=== PATIENT | female | born 1945 | race Caucasian/White ===

== ENCOUNTER 2017-06-18 13:30 | Inpatient (IN) | payer MEDICARE, BC ==
[2017-06-18 14:34] LABS: Hematocrit 37 % (35-47); Hemoglobin 12.2 g/dl (12.0-16.0); Mean Corpuscular HGB Conc 33 g/dl (31-36); Mean Corpuscular Hemoglobin 31 pg (27-31); Mean Corpuscular Volume 94 fL (80-97); Mean Platelet Volume 7 um3 (7.4-10.4); Red Blood Count 3.91 10^6/ul (4.0-5.4); Red Cell Distribution Width 13 % (10.5-15); White Blood Count 6.2 10^3/ul (3.5-10.8)
[2017-06-18 14:59] LABS: ALT 11 U/L (7-52); AST 16 U/L (13-39); Albumin 4.2 g/dL (3.2-5.2); Alkaline Phosphatase 53 U/L (34-104); Anion Gap 5 mmol/L (2-11); BUN/Creatinine Ratio 10.5 (8-20); Blood Urea Nitrogen 6 mg/dL (6-24); CO2 Carbon Dioxide 31 mmol/L (22-32); Calcium 9.4 mg/dL (8.6-10.3); Chloride 98 mmol/L (101-111); EGFR African American 134.9 (>60); EGFR Non-African American 104.9 (>60); Globulin 2.7 g/dL (2-4); Glucose 102 mg/dL (70-100); Potassium 4.2 mmol/L (3.5-5.0); Sodium 134 mmol/L (133-145); Total Protein 6.9 g/dL (6.4-8.9)
[2017-06-18 15:06] LABS: Acetaminophen < 15 mcg/mL; Alcohol < 10 mg/dL (<10); Salicylate < 2.50 mg/dL (<30)
[2017-06-18 15:16] LABS: TSH (Thyroid Stimulating Horm) < 0.03 mcIU/mL (0.34-5.60)
[2017-06-18 15:42] LABS: Urine Bilirubin Negative (Negative); Urine Glucose Negative (Negative); Urine Nitrite Negative (Negative)
[2017-06-18 16:26] LABS: Benzodiazepine Urine Screen None Detected (None Detect)
[2017-06-18] MEDS ORDERED: Nicotine Inhaler* 10 MG AMP INH PRN (17:03)
[2017-06-18] MEDS ORDERED: Al Hydrox/Mg Hydrox/Simet LIQ* 30 ML UDC PO PRN (17:03)
[2017-06-18] MEDS ORDERED: Acetaminophen TAB* 325 MG PO PRN (17:03)
[2017-06-18] MEDS ORDERED: Nicotine GUM* 2 MG PO PRN (17:03)
[2017-06-18] MEDS ORDERED: LORazepam TAB(*) 1 MG PO ONE (17:05)
[2017-06-18] MEDS ORDERED: Ondansetron ODT TAB* 4 MG PO ONE (19:23)
--- NOTE | 2017-06-18 19:24 | ED ---
Sinan Ogden Thomas, scribed for Estela Valentine MD on 06/18/17 at 1355 . Psychiatric Complaint - HPI Summary HPI Summary: The pt is a 72 y/o F with a Hx of depression presenting to the ED c/o worsening of her depression over the last 6 months and especially over the last few days. She has been crying and lying in bed more frequently in the last few days and she reports that her medication is no longer working. Her son, who is in the room, reports that her mental state has been dire. Pt additionally c/o intermittent chronic SOB. Pt denies CP and SI. PMHx: COPD, depression, vertebral fractures. SHx: former smoker, no alcohol use, no illicit drug use. She lives with her . She is on 2L of oxygen. - History Of Current Complaint Chief Complaint: [facility]ental[facility] Time Seen by Provider: 06/18/17 13:51 Hx Obtained From: Patient, Family/[employer] Clerk - son in room Onset/Duration: Lasting Weeks - 6 months, Still Present, Worse Since - last few days Timing: Constant Character: Depressed Aggravating Factor(s): Nothing Alleviating Factor(s): Nothing Has Suicidal: Denies: Thoughts Has Homicidal: Denies: Thoughts - Allergies/Home Medications Allergies/Adverse Reactions: Allergies Allergy/AdvReac Type Severity Reaction Status Date / Time Aspirin [ASA] Allergy Rash Verified 06/18/17 18:24 Ciprofloxacin [From Cipro] Allergy Rash Verified 06/18/17 18:24 Diphenhydramine Allergy Rash Verified 06/18/17 18:24 [From Benadryl] Nickel Allergy Rash Verified 06/18/17 18:24 Home Medications: Home Medications Albuterol inh POWDER (NF) [Proair Respiclick] 1 puff INH Q6HR PRN 06/18/17 [ History Confirmed 06/18/17] Atorvastatin* [Lipitor*] 20 mg PO DAILY 06/18/17 [History Confirmed 06/18/17] Calcium Carbonate-Cholecalcife [Calcium 600 + D 600-200 mg-Unit] 1 tab PO BID [History Confirmed 06/18/17] Ciprofloxacin TAB* [Cipro 500 MG TAB*] 500 mg PO BID 06/18/17 [History Confirmed 06/18/17] Fluticasone Furoate-Vilanterol [Breo Ellipta 200-25 Mcg/INH] 1 puff INH BID [History Confirmed 06/18/17] Gabapentin CAP(*) [Neurontin 100 mg CAP(*)] 200 - 300 mg PO BID PRN 06/18/17 [ History Confirmed 06/18/17] Gabapentin CAP(*) [Neurontin 300 CAP(*)] 300 mg PO TID 06/18/17 [History Confirmed 06/18/17] Lactobacillus [Probiotic] 1 cap PO DAILY 06/18/17 [History Confirmed 06/18/17] Metoprolol Tartrate TAB* [Lopressor TAB*] 25 mg PO BID 06/18/17 [History Confirmed 06/18/17] Ondansetron TAB* [Zofran 4 MG Tab*] 4 mg PO Q8HR PRN 06/18/17 [History Confirmed 06/18/17] Pantoprazole TAB (NF) [Protonix TAB (NF)] 40 mg PO BID 06/18/17 [History Confirmed 06/18/17] Potassium Chlor TAB* [Klor Con ER TAB*] 20 meq PO DAILY WITH MEAL 06/18/17 [ History Confirmed 06/18/17] clonazePAM TAB(*) [KlonoPIN TAB(*)] 0.25 mg PO TID PRN 06/18/17 [History Confirmed 06/18/17] metroNIDAZOLE TAB* [Flagyl 250 mg TAB*] 500 mg PO BID 06/18/17 [History Confirmed 06/18/17] PMH/Surg Hx/FS Hx/Imm Hx Previously Healthy: No Respiratory History: Reports: Hx Chronic Obstructive Pulmonary Disease (COPD) Musculoskeletal History: Reports: Other Musculoskeletal History - Hx vertebral fractures Psychiatric History: Reports: Hx Depression - Surgical History Surgery Procedure, Year, and Place: Hysterectomy Infectious Disease History: Denies: Traveled Outside the [place] in Last 30 Days - Family History Known Family History: Positive: Diabetes - Social History Lives: With Family - Alcohol Use: None Substance Use Type: Reports: None Hx Tobacco Use: Yes Smoking Status (MU): Former Smoker Review of Systems Negative: Chest Pain Positive: Shortness Of Breath - intermittent chronic Positive: Depressed - onset 6 months ago but worse in last few days, Other - NEG : SI All Other Systems Reviewed And Are Negative: Yes Physical Exam Triage Information Reviewed: Yes Vital Signs On Initial Exam: Initial Vitals Temp Pulse Resp BP Pulse Ox 97.4 F 62 18 149/80 99 06/18/17 13:37 06/18/17 13:37 06/18/17 13:37 06/18/17 13:37 06/18/17 13:37 Vital Signs Reviewed: Yes Appearance: Positive: Well-Appearing, No Pain Distress Skin: Positive: Warm, Skin Color Reflects Adequate Perfusion, Dry Eyes: Positive: EOMI, REGLA ENT: Positive: Pharynx normal, TMs normal Neck: Positive: Supple, Nontender Respiratory/Lung Sounds: Positive: Clear to Auscultation, Breath Sounds Present , Other - She is on NC Oxygen. Negative: Rales, Rhonchi, Wheezes Cardiovascular: Positive: RRR. Negative: Murmur, Rub, Other - NEG: gallop Abdomen Description: Positive: Nontender, Soft. Negative: Distended, Guarding, Other: - NEG: rebound Bowel Sounds: Positive: Present Musculoskeletal: Positive: Strength/ROM Intact. Negative: Edema Left, Edema Right Neurological: Positive: Sensory/Motor Intact, Alert, Oriented to Person Place, Time, CN Intact II-III Psychiatric: Positive: Affect/Mood Appropriate Diagnostics - Vital Signs Vital Signs Temp Pulse Resp BP Pulse Ox 06/18/17 13:37 97.4 F 62 18 149/80 99 - Laboratory Lab Results: Lab Results 06/18/17 06/18/17 06/18/17 Range/Units 14:20 14:20 15:30 WBC 6.2 (3.5-10.8) 10^3/ul RBC 3.91 L (4.0-5.4) 10^6/ul Hgb 12.2 (12.0-16.0) g/dl Hct 37 (35-47) % MCV 94 (80-97) fL MCH 31 (27-31) pg MCHC 33 (31-36) g/dl RDW 13 (10.5-15) % Plt Count 347 (150-450) 10^3/ul MPV 7 L (7.4-10.4) um3 Neut % (Auto) 69.2 (38-83) % Lymph % (Auto) 20.0 L (25-47) % [place] % (Auto) 7.8 (1-9) % Eos % (Auto) 2.2 (0-6) % Baso % (Auto) 0.8 (0-2) % Absolute Neuts (auto) 4.3 (1.5-7.7) 10^3/ul Absolute Lymphs (auto) 1.2 (1.0-4.8) 10^3/ul Absolute Monos (auto) 0.5 (0-0.8) 10^3/ul Absolute Eos (auto) 0.1 (0-0.6) 10^3/ul Absolute Basos (auto) 0.1 (0-0.2) 10^3/ul Absolute Nucleated RBC 0 10^3/ul Nucleated RBC % 0 Sodium 134 (133-145) mmol/L Potassium 4.2 (3.5-5.0) mmol/L Chloride 98 L (101-111) mmol/L Carbon Dioxide 31 (22-32) mmol/L Anion Gap 5 (2-11) mmol/L BUN 6 (6-24) mg/dL Creatinine 0.57 (0.51-0.95) mg/dL Est GFR ( Amer) 134.9 (>60) Est GFR (Non-Af Amer) 104.9 (>60) BUN/Creatinine Ratio 10.5 (8-20) Glucose 102 H (70-100) mg/dL Calcium 9.4 (8.6-10.3) mg/dL Total Bilirubin 0.60 (0.2-1.0) mg/dL AST 16 (13-39) U/L ALT 11 (7-52) U/L Alkaline Phosphatase 53 (34-104) U/L Total Protein 6.9 (6.4-8.9) g/dL Albumin 4.2 (3.2-5.2) g/dL Globulin 2.7 (2-4) g/dL Albumin/Globulin Ratio 1.6 (1-3) TSH < 0.03 L (0.34-5.60) mcIU/mL Urine Color Urine Appearance Urine pH (5-9) Ur Specific [place] (1.010-1.030) Urine Protein (Negative) Urine Ketones (Negative) Urine Blood (Negative) Urine Nitrate (Negative) Urine Bilirubin (Negative) Urine Urobilinogen (Negative) Ur Leukocyte Esterase (Negative) Urine Glucose (Negative) Salicylates < 2.50 (<30) mg/dL Urine Opiates Screen None detected (None Detect) Acetaminophen < 15 mcg/mL Ur Barbiturates Screen None detected (None Detect) Ur Phencyclidine Scrn None detected (None Detect) Ur Amphetamines Screen None detected (None Detect) U Benzodiazepines Scrn None detected (None Detect) Urine Cocaine Screen None detected (None Detect) U Cannabinoids Screen None detected (None Detect) Serum Alcohol < 10 (<10) mg/dL 06/18/17 Range/Units 15:30 WBC (3.5-10.8) 10^3/ul RBC (4.0-5.4) 10^6/ul Hgb (12.0-16.0) g/dl Hct (35-47) % MCV (80-97) fL MCH (27-31) pg MCHC (31-36) g/dl RDW (10.5-15) % Plt Count (150-450) 10^3/ul MPV (7.4-10.4) um3 Neut % (Auto) (38-83) % Lymph % (Auto) (25-47) % [place] % (Auto) (1-9) % Eos % (Auto) (0-6) % Baso % (Auto) (0-2) % Absolute Neuts (auto) (1.5-7.7) 10^3/ul Absolute Lymphs (auto) (1.0-4.8) 10^3/ul Absolute Monos (auto) (0-0.8) 10^3/ul Absolute Eos (auto) (0-0.6) 10^3/ul Absolute Basos (auto) (0-0.2) 10^3/ul Absolute Nucleated RBC 10^3/ul Nucleated RBC % Sodium (133-145) mmol/L Potassium (3.5-5.0) mmol/L Chloride (101-111) mmol/L Carbon Dioxide (22-32) mmol/L Anion Gap (2-11) mmol/L BUN (6-24) mg/dL Creatinine (0.51-0.95) mg/dL Est GFR ( Amer) (>60) Est GFR (Non-Af Amer) (>60) BUN/Creatinine Ratio (8-20) Glucose (70-100) mg/dL Calcium (8.6-10.3) mg/dL Total Bilirubin (0.2-1.0) mg/dL AST (13-39) U/L ALT (7-52) U/L Alkaline Phosphatase (34-104) U/L Total Protein (6.4-8.9) g/dL Albumin (3.2-5.2) g/dL Globulin (2-4) g/dL Albumin/Globulin Ratio (1-3) TSH (0.34-5.60) mcIU/mL Urine Color Straw Urine Appearance Clear Urine pH 7.0 (5-9) Ur Specific [place] 1.003 L (1.010-1.030) Urine Protein Negative (Negative) Urine Ketones Negative (Negative) Urine Blood Negative (Negative) Urine Nitrate Negative (Negative) Urine Bilirubin Negative (Negative) Urine Urobilinogen Negative (Negative) Ur Leukocyte Esterase Negative (Negative) Urine Glucose Negative (Negative) Salicylates (<30) mg/dL Urine Opiates Screen (None Detect) Acetaminophen mcg/mL Ur Barbiturates Screen (None Detect) Ur Phencyclidine Scrn (None Detect) Ur Amphetamines Screen (None Detect) U Benzodiazepines Scrn (None Detect) Urine Cocaine Screen (None Detect) U Cannabinoids Screen (None Detect) Serum Alcohol (<10) mg/dL Result Diagrams: 06/18/17 14:20 06/18/17 14:20 Lab Statement: Any lab studies that have been ordered have been reviewed, and results considered in the medical decision making process. Course/Dx - Course Course Of Treatment: She is cleared for MHE at 15:10. pt evaluated and admitted for depression - Differential Dx/Clinical Impression Provider Diagnosis: Depression Discharge - Discharge Plan Condition: Stable Disposition: ADMITTED TO [facility] documentation as recorded by the Sinan ley Thomas accurately reflects the service I personally performed and the decisions made by , Estela Valentine MD.
[2017-06-18] MEDS ORDERED: clonazePAM TAB(*) 0.5 MG PO PRN (21:56)
[2017-06-18] MEDS: metroNIDAZOLE TAB* 250 MG PO SCH (22:45)
[2017-06-18] MEDS: Calcium/Vitamin D TAB 250/125* TAB PO SCH (22:46)
[2017-06-18] MEDS: Gabapentin CAP(*) 300 MG PO SCH (22:48)
[2017-06-18] MEDS: Ciprofloxacin TAB* 500 MG PO SCH (22:48)
[2017-06-18] MEDS: Metoprolol Tartrate TAB* 25 MG PO SCH (22:48)
[2017-06-18] MEDS: Albuterol HFA INHALER* 8 gm MDI INH PRN (22:49)
[2017-06-18] MEDS: Omeprazole CAP* 20 MG PO SCH (22:49)
[2017-06-19] MEDS: Ondansetron TAB* 4 MG PO PRN ×2 (04:17→17:32)
[2017-06-19] MEDS ORDERED: Fluticasone/Vilanterol MDI(NF) 100/25 MDI INH SCH (09:00)
[2017-06-19] MEDS: Potassium Chlor TAB* 20 MEQ TAB.ER PO SCH (09:24)
[2017-06-19] MEDS: Omeprazole CAP* 20 MG PO SCH ×2 (09:24→20:39)
[2017-06-19] MEDS: Metoprolol Tartrate TAB* 25 MG PO SCH ×2 (09:24→20:39)
[2017-06-19] MEDS: Calcium/Vitamin D TAB 250/125* TAB PO SCH ×2 (09:25→20:39)
[2017-06-19] MEDS: metroNIDAZOLE TAB* 250 MG PO SCH ×2 (09:25→20:39)
[2017-06-19] MEDS: Lactobacillus Acidophilu (GG)* 1 CAP CAP PO SCH (09:25)
[2017-06-19] MEDS: Ciprofloxacin TAB* 500 MG PO SCH ×2 (09:25→20:39)
[2017-06-19] MEDS: Atorvastatin* 20 MG TAB PO SCH (09:26)
[2017-06-19] MEDS: Gabapentin CAP(*) 300 MG PO SCH ×3 (09:26→20:41)
[2017-06-19] MEDS: Vitamin THERAPEUTIC TAB PO SCH (09:27)
--- NOTE | 2017-06-19 10:05 | HP ---
H&P (Free Text) History and Physical: HPI: ---- Patient is a 72yo female with no significant PPHx. Patient interviewed with and son at her bedside. Patient presented to the [facility] ED after recommendation from her PCP office for recent exacerbation of anxiety and depression. Patient reports the root of her anxiety is her fear that she is ill and no one can find the cause. Patient reports months of severe abdominal pain, worse in the mornings. Patient reports over the last week, the pain has been so intense that she has been unable to get out of bed. Patient reports her PCP and GI travel service consultant have done 2 colonoscopies, an EGD and multiple abdominal films. Patient was started on Gabapentin then Klonopin for anxiety. Son and report over the last few weeks patient has isolated and is not involved in the family as she once was. Per and son , patient has not been attending to hygiene nor to grooming. She is not engaged with her grandchildren. Patient reports anxiety that her pain will worsen if she moves. She does report diminished mood, energy, and sleep. Patient endorses increased episodes of crying and social withdrawal. Patient denies anhedonia and SI/HI. Patient has a dx of IBS. She has also been started on a course of Cipro and Flagyl due to a recent dx of colitis. Patient at this point believes the abdominal pain is a side effect of Gabapentin or Klonopin as she's recent abd pain can be a med of both meds. Patient denies constipation. I will not further irradiate her belly. Patient is amenable to taper off both meds and initiation of Effexor for anxiety and depression. Patient reports no hx of abuse of alcohol. Patient denies hx of use of illicit substances. Patient reported no symptoms of psychosis nor were any elicited on interview. Past Psych Hx: Inpt - No hx Outpt - No hx Psychotropic med hx - Klonopin, Gabapentin Suicide attempt Hx / SIB Hx: Patient denies hx of suicide attack and SIB. Substance Hx: Patient denies hx of abuse of alcohol. Patient denies hx of use of illicit substances. Medical Hx: Osteoporosis Recent vertebral fracture after a fall COPD on home oxygen(2L) continuous Current dx of colitis onCipro and Flagyl IBS Allergies: --------- Loperamide ASA Diphenhydramine Nickel Social Hx: --------- -Lives with of >30 yrs -Close with son who lives in the same city -Close with daughter who lives out of town -Multiple grandchildren -Retired -No firearms in the home Home medications: Home Medications Medication Instructions Recorded Confirmed Type Albuterol inh POWDER (NF) [Proair 1 puff INH Q6HR PRN 06/18/17 06/18/17 History Respiclick] Atorvastatin* [Lipitor*] 20 mg PO DAILY 06/18/17 06/18/17 History Calcium Carbonate-Cholecalcife 1 tab PO BID 06/18/17 06/18/17 History [Calcium 600 + D 600-200 mg-Unit] Ciprofloxacin TAB* [Cipro 500 MG 500 mg PO BID 06/18/17 06/18/17 History TAB*] Fluticasone Furoate-Vilanterol 1 puff INH BID 06/18/17 06/18/17 History [Breo Ellipta 200-25 Mcg/INH] Gabapentin CAP(*) [Neurontin 100 200 - 300 mg PO BID PRN 06/18/17 06/18/17 History mg CAP(*)] Gabapentin CAP(*) [Neurontin 300 300 mg PO TID 06/18/17 06/18/17 History CAP(*)] Lactobacillus [Probiotic] 1 cap PO DAILY 06/18/17 06/18/17 History Metoprolol Tartrate TAB* 25 mg PO BID 06/18/17 06/18/17 History [Lopressor TAB*] Ondansetron TAB* [Zofran 4 MG Tab*] 4 mg PO Q8HR PRN 06/18/17 06/18/17 History Pantoprazole TAB (NF) [Protonix 40 mg PO BID 06/18/17 06/18/17 History TAB (NF)] Potassium Chlor TAB* [Klor Con ER 20 meq PO DAILY WITH MEAL 06/18/17 06/18/17 History TAB*] clonazePAM TAB(*) [KlonoPIN TAB(*)] 0.25 mg PO TID PRN 06/18/17 06/18/17 History metroNIDAZOLE TAB* [Flagyl 250 mg 500 mg PO BID 06/18/17 06/18/17 History TAB*] VITALS: --------- Vital Signs (72 hours) 06/18/17 06/18/17 06/18/17 13:37 14:06 18:33 Temperature 97.4 F 98.4 F Pulse Rate 62 68 Respiratory 18 16 16 Rate Blood Pressure 149/80 147/85 (mmHg) O2 Sat by Pulse 99 99 Oximetry 06/18/17 06/18/17 06/18/17 19:31 19:54 21:28 Temperature 97.7 F 99.0 F 99 F Pulse Rate 66 86 86 Respiratory 16 18 18 Rate Blood Pressure 133/68 155/90 155/90 (mmHg) O2 Sat by Pulse 97 98 98 Oximetry 06/18/17 06/18/17 06/19/17 22:05 22:48 00:48 Temperature Pulse Rate Respiratory 18 16 18 Rate Blood Pressure (mmHg) O2 Sat by Pulse Oximetry 06/19/17 06/19/17 06/19/17 07:44 09:26 11:26 Temperature 97.3 F Pulse Rate 55 Respiratory 16 16 16 Rate Blood Pressure 125/68 (mmHg) O2 Sat by Pulse 100 Oximetry 06/19/17 06/19/17 06/19/17 13:20 13:21 13:26 Temperature Pulse Rate Respiratory 16 16 16 Rate Blood Pressure (mmHg) O2 Sat by Pulse Oximetry 06/19/17 06/19/17 06/19/17 15:21 17:33 20:41 Temperature Pulse Rate 73 Respiratory 16 16 Rate Blood Pressure 138/76 (mmHg) O2 Sat by Pulse 98 Oximetry 06/19/17 06/19/17 06/20/17 20:48 23:20 07:22 Temperature 97.5 F Pulse Rate 69 66 Respiratory 16 28 Rate Blood Pressure 118/72 121/57 (mmHg) O2 Sat by Pulse 98 98 Oximetry 06/20/17 06/20/17 06/20/17 09:23 09:24 11:24 Temperature Pulse Rate Respiratory 18 18 16 Rate Blood Pressure (mmHg) O2 Sat by Pulse Oximetry 06/20/17 06/20/17 06/20/17 20:00 20:07 20:08 Temperature Pulse Rate 73 Respiratory 16 16 Rate Blood Pressure 105/63 (mmHg) O2 Sat by Pulse 99 Oximetry 06/20/17 06/20/17 06/21/17 22:07 22:08 07:26 Temperature 98.4 F Pulse Rate 74 Respiratory 16 16 26 Rate Blood Pressure 118/62 (mmHg) O2 Sat by Pulse Oximetry 06/21/17 06/21/17 06/21/17 09:23 09:30 10:34 Temperature Pulse Rate Respiratory 16 16 18 Rate Blood Pressure (mmHg) O2 Sat by Pulse Oximetry LABS: ----- Laboratory Tests 06/18/17 06/18/17 06/18/17 14:20 14:20 15:30 WBC 6.2 RBC 3.91 L Hgb 12.2 Hct 37 MCV 94 MCH 31 MCHC 33 RDW 13 Plt Count 347 MPV 7 L Neut % (Auto) 69.2 Lymph % (Auto) 20.0 L [place] % (Auto) 7.8 Eos % (Auto) 2.2 Baso % (Auto) 0.8 Absolute Neuts (auto) 4.3 Absolute Lymphs (auto) 1.2 Absolute Monos (auto) 0.5 Absolute Eos (auto) 0.1 Absolute Basos (auto) 0.1 Absolute Nucleated RBC 0 Nucleated RBC % 0 Sodium 134 Potassium 4.2 Chloride 98 L Carbon Dioxide 31 Anion Gap 5 BUN 6 Creatinine 0.57 Est GFR ( Amer) 134.9 Est GFR (Non-Af Amer) 104.9 BUN/Creatinine Ratio 10.5 Glucose 102 H Calcium 9.4 Total Bilirubin 0.60 AST 16 ALT 11 Alkaline Phosphatase 53 Total Protein 6.9 Albumin 4.2 Globulin 2.7 Albumin/Globulin Ratio 1.6 TSH < 0.03 L Urine Color Urine Appearance Urine pH Ur Specific [place] Urine Protein Urine Ketones Urine Blood Urine Nitrate Urine Bilirubin Urine Urobilinogen Ur Leukocyte Esterase Urine Glucose Salicylates < 2.50 Urine Opiates Screen None detected Acetaminophen < 15 Ur Barbiturates Screen None detected Ur Phencyclidine Scrn None detected Ur Amphetamines Screen None detected U Benzodiazepines Scrn None detected Urine Cocaine Screen None detected U Cannabinoids Screen None detected Serum Alcohol < 10 06/18/17 15:30 WBC RBC Hgb Hct MCV MCH MCHC RDW Plt Count MPV Neut % (Auto) Lymph % (Auto) [place] % (Auto) Eos % (Auto) Baso % (Auto) Absolute Neuts (auto) Absolute Lymphs (auto) Absolute Monos (auto) Absolute Eos (auto) Absolute Basos (auto) Absolute Nucleated RBC Nucleated RBC % Sodium Potassium Chloride Carbon Dioxide Anion Gap BUN Creatinine Est GFR ( Amer) Est GFR (Non-Af Amer) BUN/Creatinine Ratio Glucose Calcium Total Bilirubin AST ALT Alkaline Phosphatase Total Protein Albumin Globulin Albumin/Globulin Ratio TSH Urine Color Straw Urine Appearance Clear Urine pH 7.0 Ur Specific [place] 1.003 L Urine Protein Negative Urine Ketones Negative Urine Blood Negative Urine Nitrate Negative Urine Bilirubin Negative Urine Urobilinogen Negative Ur Leukocyte Esterase Negative Urine Glucose Negative Salicylates Urine Opiates Screen Acetaminophen Ur Barbiturates Screen Ur Phencyclidine Scrn Ur Amphetamines Screen U Benzodiazepines Scrn Urine Cocaine Screen U Cannabinoids Screen Serum Alcohol PHYSICAL EXAM: Patient declines PE. Please see H&P documented in the [facility]: Psychiatric Complaint note dated 06/18/17. MSE: ----- Appearance - frail thin build elderly femle, fair hygeine, in NAD Behavior - anxious, cooperative Speech - RVR, prosody wnl Eye Contact - good Mood - " scared" Affect - extremely anxious TP - linear and GD TC - focused on tapering off Klonopin and Gabapentin as she feels these meds may be triggering her abdominal pain Perception - no signs of psychosis noted or reported Orientation - A&Ox3 Cognition - intact Insight - poor Judgement - poor SI / HI - denies both ASSESSMENT: 1. MDD, S,S w/ anxious distress 2. Illness anxiety d/o 3. Unspecified Personality d/o (cluster B traits) PLAN: ------ 1. Continue admission to [facility] for safety and symptom mx. 2. Continue home medical medication regimen as Rx'd. 3. Continue Cipro 500mg po BID for recent dx of colitis. 4. Continue Flagyl 500mg po BID for recent dx of colitis. 5. Start Effexor at 75mg po daily for anxiety. 6. Will taper patient's home dose Clonazepam from 0.5mg po TID PRN to 0.25mg po TID PRN for anxiety. Continue at this dose for 2 weeks, with goal to further taper to BID for 2 weeks, and daily for 2 weeks and 1 QOD for 1 week and STOP. 7. Continue Gabapentin at home dose 300mg po TID for anxiety with plan to taper off once patient on Effexor for 2 weeks. 8. Continue compiling collateral information from PCP. 9. Patient to participate in milieu activities and groups.
[2017-06-19] MEDS ORDERED: LORazepam TAB(*) 1 MG PO ONE (10:30)
[2017-06-19] MEDS: Albuterol HFA INHALER* 8 gm MDI INH PRN ×2 (13:24→20:41)
[2017-06-19] MEDS: Venlafaxine EXT RELEASE CAP* 75 MG PO SCH (13:39)
[2017-06-19] MEDS ORDERED: clonazePAM TAB(*) 0.5 MG PO ONE (16:44)
[2017-06-19] MEDS: FLUTICASONE FUROATE INH SCH (20:40)
[2017-06-19] MEDS: VILANTEROL INH SCH (20:40)
[2017-06-19] MEDS: clonazePAM TAB(*) 0.5 MG PO SCH (20:41)
[2017-06-20] MEDS: Ondansetron TAB* 4 MG PO PRN ×2 (05:25→15:54)
[2017-06-20] MEDS ORDERED: Venlafaxine TAB (NF) 25 MG TAB PO SCH (09:00)
[2017-06-20] MEDS: Potassium Chlor TAB* 20 MEQ TAB.ER PO SCH ×2 (09:22→09:51)
[2017-06-20] MEDS: Omeprazole CAP* 20 MG PO SCH ×2 (09:22→20:03)
[2017-06-20] MEDS: clonazePAM TAB(*) 0.5 MG PO SCH ×3 (09:23→20:07)
[2017-06-20] MEDS: Gabapentin CAP(*) 300 MG PO SCH ×3 (09:24→20:08)
[2017-06-20] MEDS: Metoprolol Tartrate TAB* 25 MG PO SCH ×2 (09:24→20:04)
[2017-06-20] MEDS: Lactobacillus Acidophilu (GG)* 1 CAP CAP PO SCH (09:24)
[2017-06-20] MEDS: Atorvastatin* 20 MG TAB PO SCH (09:24)
[2017-06-20] MEDS: Calcium/Vitamin D TAB 250/125* TAB PO SCH ×2 (09:25→20:03)
[2017-06-20] MEDS: Venlafaxine EXT RELEASE CAP* 75 MG PO SCH (09:27)
[2017-06-20] MEDS: Vitamin THERAPEUTIC TAB PO SCH (09:50)
[2017-06-20] MEDS: VILANTEROL INH SCH ×2 (09:50→20:13)
[2017-06-20] MEDS: FLUTICASONE FUROATE INH SCH ×2 (09:50→20:13)
[2017-06-20] MEDS: Albuterol HFA INHALER* 8 gm MDI INH PRN (11:18)
[2017-06-21] MEDS: Ondansetron TAB* 4 MG PO PRN ×2 (07:41→18:53)
[2017-06-21] MEDS: Atorvastatin* 20 MG TAB PO SCH (09:22)
[2017-06-21] MEDS: Calcium/Vitamin D TAB 250/125* TAB PO SCH ×2 (09:22→20:16)
[2017-06-21] MEDS: Potassium Chlor TAB* 20 MEQ TAB.ER PO SCH (09:22)
[2017-06-21] MEDS: Metoprolol Tartrate TAB* 25 MG PO SCH ×2 (09:23→20:16)
[2017-06-21] MEDS: Omeprazole CAP* 20 MG PO SCH ×2 (09:23→20:17)
[2017-06-21] MEDS: Lactobacillus Acidophilu (GG)* 1 CAP CAP PO SCH (09:23)
[2017-06-21] MEDS: Gabapentin CAP(*) 300 MG PO SCH ×3 (09:23→20:17)
[2017-06-21] MEDS: Venlafaxine EXT RELEASE CAP* 75 MG PO SCH (09:23)
[2017-06-21] MEDS: FLUTICASONE FUROATE INH SCH ×2 (09:25→20:27)
[2017-06-21] MEDS: VILANTEROL INH SCH ×2 (09:25→20:27)
[2017-06-21] MEDS: clonazePAM TAB(*) 0.5 MG PO SCH ×3 (09:30→20:15)
[2017-06-21] MEDS: Vitamin THERAPEUTIC TAB PO SCH (09:30)
[2017-06-21] MEDS: Albuterol HFA INHALER* 8 gm MDI INH PRN (18:06)
--- NOTE | 2017-06-21 18:27 | PN ---
Subjective - Subjective Subjective: Bill is in bed, visiting with her son, she endorses improvements in her mood and anxiety, absence of suicidal ideation or side effects from prescribed meds. She continues to have loose stools that she attributes to Neurontin and Klonopin. She is hopeful for discharge on Thursday and her son support her request. Objective - Appearance Appearance: Other - bedridden, frail Grooming: Fairly Well Kept - Behavior Psychomotor Activities: Abnormal-Decreased Exhibits Abnormal Movement: No - Attitude and Relatedness Attitude and Relatedness: Cooperative Eye Contact: Fair - Speech Quality: Unpressured Latencies: Normal Quantity: Appropriate - Mood Patient's Decription of Mood: better - Affect Observed Affect: Non-labile Affect Consistent with: Euthymia - Thought Process Patient's Thought Process: Coherent, Goal Directed Thought Content: No Passive Wish, No Suicidal Planning, No Homicidal Ideation, No Paranoid Ideation - Sensorium Experiencing Hallucinations: No, Sensorium is Clear - Level of Consciousness Level of Consciousness: Alert Orientation: Yes Intact - Insight and Judgement Insight and Judgement: Fair - Group Participation Particating in Group Activities: No - Medication Management Medication Management Adherence: Yes Assessment - Assessment Merits Inpatient Hospitalization: For Ongoing Evaluation, Consolidate Improvements, For Discharge Planning Inpatient DSM-IV Dx: MDD, recurrent, severed, 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 Clinical Impression: She is stabilizing in this structured setting. Plan - Plan Treatment Plan: Name: BILL RODRIGUEZ Birthdate: 1945 [id number] Medications: Current Medications Acetaminophen (Tylenol Tab*) 650 mg PO Q4H PRN PRN Reason: for pain; or Temp >101 F Al Hydrox/Mg Hydrox/Simethicone (Maalox Plus*) 30 ml PO Q4H PRN PRN Reason: INDIGESTION Albuterol (Ventolin Hfa Inhaler*) 1 puff INH Q6H PRN PRN Reason: SHORTNESS OF BREATH Last Admin: 06/21/17 18:06 Dose: 1 puff Atorvastatin Calcium (Lipitor*) 20 mg PO DAILY [facility] Last Admin: 06/21/17 09:22 Dose: 20 mg Calcium/Vitamin D (Oscal D Tab 250/125*) 2 tab PO BID [facility] Last Admin: 06/21/17 09:22 Dose: 2 tab Clonazepam (Klonopin Tab(*)) 0.25 mg PO TID [facility] Last Admin: 06/21/17 14:43 Dose: 0.25 mg Gabapentin (Neurontin Cap(*)) 300 mg PO TID [facility] Last Admin: 06/21/17 14:43 Dose: 300 mg Lactobacillus Rhamnosus (Culturelle*) 1 cap PO DAILY [facility] Last Admin: 06/21/17 09:23 Dose: 1 cap Metoprolol Tartrate (Lopressor Tab*) 25 mg PO BID [facility] Last Admin: 06/21/17 09:23 Dose: 25 mg Multivitamins (Theragran Tab*) 1 tab PO DAILY [facility] Last Admin: 06/21/17 09:30 Dose: Not Given Nicotine (Nicotine Inhaler*) 10 mg INH Q2H PRN PRN Reason: CRAVING Nicotine Polacrilex (Nicotine Gum*) 2 mg PO Q2H PRN PRN Reason: CRAVING Pto Nf Med* Breo (Ellipta 200/25 Mcg) 1 admin INH BID [facility] Last Admin: 06/21/17 09:25 Dose: 1 admin Omeprazole (Prilosec Cap*) 20 mg PO BID [facility] Last Admin: 06/21/17 09:23 Dose: 20 mg Ondansetron HCl (Zofran Tab*) 4 mg PO Q8H PRN PRN Reason: NAUSEA Last Admin: 06/21/17 07:41 Dose: 4 mg Potassium Chloride (Klor Con Er Tab*) 20 meq PO DAILY WITH MEAL [facility] Last Admin: 06/21/17 09:22 Dose: 20 meq Venlafaxine HCl (Effexor Xr Cap*) 75 mg PO DAILY [facility] Last Admin: 06/21/17 09:23 Dose: 75 mg - Discharge Plan Discharge Plan: Outpatient Follow Up Outpatient Program: Private Clinician(s)
[2017-06-21] MEDS ORDERED: Acetaminophen TAB* 325 MG ONE (20:22)
[2017-06-22] MEDS: Ondansetron TAB* 4 MG PO PRN (08:35)
[2017-06-22 09:24] VITALS: BP 89/63
[2017-06-22] MEDS ORDERED: Metoprolol Tartrate TAB* 25 MG PO SCH (09:47)
[2017-06-22] MEDS ORDERED: NS 0.9% 1000 ML* 1,000 ML IV ONE (09:47)
[2017-06-22] MEDS: clonazePAM TAB(*) 0.5 MG PO SCH (10:02)
[2017-06-22] MEDS: Atorvastatin* 20 MG TAB PO SCH (10:06)
[2017-06-22] MEDS: Gabapentin CAP(*) 300 MG PO SCH (10:06)
[2017-06-22] MEDS: Venlafaxine EXT RELEASE CAP* 75 MG PO SCH (10:07)
[2017-06-22] MEDS: Potassium Chlor TAB* 20 MEQ TAB.ER PO SCH (10:07)
[2017-06-22] MEDS: Lactobacillus Acidophilu (GG)* 1 CAP CAP PO SCH (10:07)
[2017-06-22] MEDS: Omeprazole CAP* 20 MG PO SCH (10:07)
[2017-06-22] MEDS: Calcium/Vitamin D TAB 250/125* TAB PO SCH (10:08)
[2017-06-22] MEDS: Vitamin THERAPEUTIC TAB PO SCH (10:12)
[2017-06-22] MEDS: VILANTEROL INH SCH (10:13)
[2017-06-22] MEDS: FLUTICASONE FUROATE INH SCH (10:13)
[2017-06-22 10:28] LABS: Hematocrit 36 % (35-47); Hemoglobin 12.2 g/dl (12.0-16.0); Mean Corpuscular HGB Conc 34 g/dl (31-36); Mean Corpuscular Hemoglobin 31 pg (27-31); Mean Corpuscular Volume 92 fL (80-97); Mean Platelet Volume 7 um3 (7.4-10.4); Red Blood Count 3.92 10^6/ul (4.0-5.4); Red Cell Distribution Width 13 % (10.5-15); White Blood Count 7.1 10^3/ul (3.5-10.8)
[2017-06-22] MEDS: Metoprolol Tartrate TAB* 25 MG PO SCH (10:35)
[2017-06-22 10:42] LABS: Albumin 3.7 g/dL (3.2-5.2); BUN/Creatinine Ratio 15.3 (8-20); C Reactive Protein 2.68 mg/L (< 5.00); EGFR African American 129.6 (>60); EGFR Non-African American 100.8 (>60); Globulin 2.4 g/dL (2-4); Potassium 3.9 mmol/L (3.5-5.0); Total Bilirubin 0.6 mg/dL (0.2-1.0); Total Protein 6.1 g/dL (6.4-8.9)
[2017-06-22 12:05] LABS: Erythrocyte Sed Rate 36 mm/Hr (0-40)
--- NOTE | 2017-06-22 22:51 | DS ---
DISCHARGE SUMMARY: DATE OF ADMISSION: 06/18/17 DATE OF DISCHARGE: 06/22/17 DISCHARGE DIAGNOSES: [place] I: Major depressive disorder, single episode, severe without psychotic features. [place] II: Deferred. [place] III: Osteoporosis, recent vertebral fracture after a fall, chronic obstructive pulmonary disease, colitis, irritable bowel syndrome. [place] IV: Moderate primary support stressors. [place] V: At the time of admission was 30 and at the time of discharge was 50. CONDITION AT THE TIME OF DISCHARGE: Guarded. The patient is medically unstable , unable to eat, having severe diarrhea and gastrointestinal distress. For these reasons, she will be a direct transfer to the inpatient medical service here at [facility]. She is denying suicidal ideations at this time and would not require one-to-one observation status while on the medical unit. MENTAL STATUS EXAMINATION: The patient is an aging, frail, thin, white female, in some distress. Her behavior is anxious, but cooperative. Speech has a regular tone and volume. Eye contact is good. Mood is anxious with a corresponding anxious affect. Thought process is linear and goal directed. Thought content is significant for somatic issues. She denies auditory or visual hallucinations. Insight and judgment are fair given her willingness to follow through with medical treatment on the inpatient medical floor at this time. She denies suicidal or homicidal ideations. Cognitively, she is awake and alert, oriented x3. DISCHARGE INSTRUCTIONS: To the patient are as follows: A. Medications: 1. She is on Tylenol 650 mg every 4 hours as needed for pain. 2. Maalox 30 mL every 4 hours as needed for indigestion. 3. Albuterol inhaler every 6 hours 1 puff inhaled as a p.r.n. for wheezing. 4. Lipitor 20 mg p.o. daily. 5. Calcium/vitamin D 2 tablets p.o. b.i.d. 6. Gabapentin 300 mg p.o. t.i.d. 7. Lactobacillus 1 cap p.o. daily. 8. Metoprolol 25 mg p.o. b.i.d. 9. Nicotine gum 2 mg every 2 hours as a p.r.n. for nicotine craving. 10. Nicotine inhaler 10 mg inhaled every 2 hours as a p.r.n. for nicotine craving. 11. Omeprazole 20 mg p.o. b.i.d. 12. Zofran 4 mg every 8 hours as a p.r.n. for nausea. 13. Potassium chloride 20 mEq p.o. daily. 14. Effexor XR 75 mg p.o. daily. 15. Multivitamin once daily. 16. Klonopin 0.25 mg p.o. t.i.d. B. Diet: Regular. C. Activity: As per medical unit protocol. The patient is a smoker and would like to continue receiving nicotine replacement therapy while she is on the medical unit. There are no laboratory or diagnostic studies pending at the time of discharge. D. Followup Care: The patient will be a direct transfer to the inpatient medical service on the 4th floor where she will receive medical workup by the hospitalist team. While she is on the inpatient hospitalist service, we recommend that Psychiatry be consulted, so that we can make recommendations for further psychiatric care. It is uncertain at this time whether she will require further inpatient psychiatric hospitalization. It is clear that she does not require one- to-one observation at this time as she is no longer suicidal. HOSPITAL COURSE: Part A: Reason for admission: The patient is a 72-year-old white female interviewed with in bed and son at her bedside, brought to the ED after a recommendation from her primary care office due to recent exacerbation in anxiety and depression. The patient reported that the root of her anxiety is her fear that she is ill and cannot find the cause. She has had several months of severe abdominal pain, which has been worse in the mornings over the last week leading to admission. Her pain has been so intense that she was unable to get out of bed. She reported that her primary care provider and GI specialist had done 2 colonoscopies and EGD and multiple abdominal films; however, they could not find an organic reason for her distress. She has been started recently on a combination of gabapentin and Klonopin for anxiety. Both her son and reported at the time of admission that over the few weeks leading up to this, she had been isolating, not involving herself with family activities. She had not been attending to her hygiene or grooming. She was not engaging with her grandchildren, which is very unusual for her. She did report anxiety that her pain would worsen if she moved and she reported diminished mood, energy, and crying. She endorsed increased episodes of crying and social withdrawal; however, she did deny anhedonia. She denied suicidal or homicidal ideations. Part B: Psychiatric treatment rendered: The patient was admitted to the adult behavioral health unit where she was placed on q.30-minute checks for her own safety. We did start her on a trial of Effexor XR 75 mg p.o. daily, which she appeared to tolerate well. The patient was minimally involved in milieu activities simply, because she was highly somatic complaining of abdominal pain with no appetite as well as nausea. On the day of discharge, in particular her blood pressures were quite low, specifically at 95/68. She has been observed to have frequent watery loose stools with nausea, very little p.o. intake as well as complaints of dizziness and weakness. For these reasons, she has been referred for consultation by the hospitalist service, who have done their evaluation and are recommending that she be transferred to the inpatient medical service. There, she can receive further psychiatric evaluation by the psychiatry consult team. It is uncertain at this time whether she will require further inpatient psychiatric care or whether she could be reasonably treated in the outpatient setting. We do not recommend one-to-one observations at this time given the fact that the patient has very little risk of suicide. [id number]/[facility] #: [id number] SHOAIB
== END 2017-06-22 14:10 | disposition short-term general hospital (02) | DRG 885 ==
LOC: ED 13:30 → BSU 21:08
PROVIDERS: ADMIT Psychiatry & Neurology Psychiatry; ATTEND Psychiatry & Neurology Psychiatry
DX: F32.2 Major depressive disorder, single episode, severe without psychotic features (principal); J44.9 Chronic obstructive pulmonary disease, unspecified; M81.0 Age-related osteoporosis without current pathological fracture; K52.9 Noninfective gastroenteritis and colitis, unspecified; F17.210 Nicotine dependence, cigarettes, uncomplicated
CPT/HCPCS: 36415; 80053; 80307; 80320; 80329; 81003; 84443; 85025; 85652; 86140; 99222; A9270-GY; G0480

== ENCOUNTER 2017-06-22 12:45 | Observation (INO) | payer MEDICARE, BC ==
[2017-06-22] MEDS ORDERED: Acetaminophen TAB* 325 MG PO PRN (12:59)
[2017-06-22] MEDS ORDERED: Albuterol 2.5 MG/3 ML NEB.SOL* (0.083%) INH PRN (12:59)
[2017-06-22] MEDS: Omeprazole CAP* 20 MG PO SCH (15:13)
[2017-06-22] MEDS: NS 0.9% 1000 ML* 1,000 ML IV SCH (15:13)
[2017-06-22] MEDS: Gabapentin CAP(*) 300 MG PO SCH ×2 (15:13→21:09)
[2017-06-22] MEDS: Heparin VIAL(*) 5000 UNITS/ML VIAL (FIVE THOUSAND) SUBCUT SCH ×2 (15:13→21:12)
[2017-06-22] MEDS ORDERED: Iohexol 300* (CONTRAST) 10 ML SDV IV ONE (15:35)
--- NOTE | 2017-06-22 16:16 | RAD ---
INDICATION: RIGHT lower abdominal pain. Diarrhea. Hypotension, dehydration. Post hysterectomy and back surgery. COMPARISON: No relevant prior exams available on the [facility] PACS for comparison. TECHNIQUE: Multidetector CT images were obtained from the lung bases to the ischial tuberosities with 77 mL Omnipaque 300 IV and oral contrast. Multiplanar reformation. REPORT: Unremarkable visualized inferior thorax. 20 cm cephalocaudal liver which may represent hepatomegaly or normal variant Paulette lobe. Diffuse decreased density of the liver consistent with hepatosteatosis. 2 hyperenhancing lesions are identified at the dome of the liver reference image 9 of 85 measuring 0.9 and 1.1 cm maximum dimension. Unremarkable CT appearance of the gallbladder. Negative for biliary dilatation. Unremarkable pancreas and spleen. Small hiatal hernia. No additional abnormality of the upper GI. No CT abnormality of the small bowel loops. Enteric contrast extends to the rectum. Moderate colonic diverticulosis primarily involving the redundant sigmoid colon without findings of diverticulitis. Unremarkable retrocecal appendix. Negative for ascites, free air, hernias. Normal adrenal glands. Unremarkable kidneys with symmetric nephrograms and pyelograms. Unremarkable ureters and urinary bladder. Post hysterectomy. Unremarkable adnexal regions. Negative for lymphadenopathy. Atherosclerotic calcification of normal diameter abdominal aorta and iliac arteries. Normal variant retroaortic LEFT renal vein. Physiologic distention of the IVC. Moderate chronic osteoporotic appearing anterior column compression fracture at L2 with approximate 50% loss of height. Milder chronic appearing osteoporotic compression fracture at L3. Multiple osteoporotic compression fractures at the visualized lower thoracic spine with several levels of methylmethacrylate cement. Grade 1 degenerative L5-S1 anterolisthesis. Multilevel facet joint osteoarthritis. No suspicious focal osseous lesions evident. IMPRESSION: 1. Mild hepatomegaly versus normal variant Paulette lobe. 2. Hepatic steatosis. 3. 2 small hyperenhancing lesions at the dome of the liver are nonspecific. Differential includes benign entities such as transient attenuation difference and flash filling hemangiomas however malignant entities are not excluded. Given absence of prior exams to document stability further assessment with a dedicated liver mass protocol MRI or in setting of contraindication to MRI CT would be suggested. 4. Normal appendix documented. Colonic diverticulosis without findings of diverticulitis.
--- NOTE | 2017-06-22 17:01 | HP ---
CC: Dr. Ribeiro * HISTORY AND PHYSICAL: DATE OF ADMISSION: 06/22/17 PRIMARY CARE PROVIDER: Dr. Ribeiro, from [place]. ATTENDING PHYSICIAN WHILE IN THE HOSPITAL: Dr. Gillian Hamilton * (report dictated by Isidro Squires NP). CHIEF COMPLAINT: 1. Nausea and vomiting. 2. Diarrhea. HISTORY OF PRESENT ILLNESS: Mrs. Ledesma is a 72-year-old female patient that actually had originally presented to our psychiatric services for management of depression and anxiety. She was brought in on 06/19/17 to our emergency department, was evaluated. She was reporting feeling anxious and fear that she is ill and no one can find the cause in relationship to her diarrhea and vomiting, as she has been having significant and several months of abdominal discomfort in the lower abdomen. She was seen by her PCP and GI consultants. According to the patient she has had multiple endoscopies, colonoscopies, and abdominal exams, although we have no records of this. She says, because of this she became very anxious, very depressed. It was noted that the patient had not been attending to her hygiene or grooming. It was felt that she was suffering from major depressive disorder and she was admitted for stabilization for the depression and anxiety to our [facility]. The patient, while there, noted that in the last few days she has been having 5 to 6 lose bowel movements, no blood. She has been having lower abdominal cramping and discomfort and tenderness, but no reports of fevers or chills, and it was noted today that she was hypotensive. On interviewing the patient, she states she has been feeling very weak. The pain, she states, has been worse in the lower abdomen and she does admit to having some nausea, but no vomiting now, and she states that she just feels too weak and she cannot participate in group activities. She adamantly denies being suicidal. She says the pain which she has is mostly in the lower abdomen, it comes and goes, described as cramping, and again she has been having it for several months now, and she has seen several consultants for this, although again we have no records of this here. It was noted that she was hypotensive and because of this we were asked to evaluate for consult for further workup of diarrhea and abdominal discomfort, and it was felt because of her hypotension she will probably require IV fluids. She was felt not to be appropriate to the [facility], so will be transferring her to our care. REVIEW OF SYSTEMS: She denied any weight change to me. She denied having any double vision. There was no ear discharge. She denied having any rhinorrhea. There was no sore throat. No chest pain. No orthopnea. No nocturnal dyspnea. She does admit to having the abdominal discomfort, mostly in the lower abdomen, describes as cramping, that comes and goes. She did have episodes of nausea and vomiting, but none today. She does have history of diarrhea, but already she is on Cipro and Flagyl. She states she recently was diagnosed with infection in the lower part of her colon about a week ago, at [place]. We will try to get those records. She denies having any chest pain. No shortness of breath. No light headedness. No dysuria, no frequency. No loss of consciousness. No pruritus and no skin ulcerations. Review of 14 systems completed, all others are negative. PAST MEDICAL HISTORY: Significant for: 1. History of IBS, recent diagnosis of presumably infectious colitis. 2. Osteoporosis. 3. COPD on 2 liters chronically. 4. Diverticulosis. PAST SURGICAL HISTORY: She has had back surgery vertebroplasty and also has had a hysterectomy. MEDICATIONS: Home meds, according to the list that was obtained at the [facility], includes: 1. Flagyl 500 mg p.o. b.i.d. 2. Klonopin 0.25 mg p.o. t.i.d. as needed. 3. Potassium 20 mEq p.o. daily with meals. 4. Protonix 40 mg p.o. b.i.d. 5. Zofran 4 mg p.o. every 8 hours as needed. 6. Lopressor 25 mg p.o. b.i.d. 7. Lactobacillus 1 capsule p.o. daily. 8. Gabapentin 300 mg p.o. t.i.d. 9. Breo Ellipta 1 puff inhaled b.i.d. 10. Cipro 500 mg p.o. b.i.d. 11. Calcium 1 tablet p.o. b.i.d. 12. Lipitor 20 mg p.o. daily. 13. ProAir 1 puff inhaled every 6 hours as needed. ALLERGIES TO MEDICATIONS: Include LOMOTIL, DIPHENHYDRAMINE, NICKEL, and ASPIRIN. FAMILY HISTORY: Mother is 93 years old and actually is still alive. Father of a history of cirrhosis of the liver. SOCIAL HISTORY: She smoked up until of about 7 months ago. She smoked about half- a-pack a day for her entire life since she was a teenager. She does not drink alcohol. Surrogate decision maker is her , Anthony. PHYSICAL EXAMINATION GENERAL: At this time, Mrs. Ledesma is a 72-year-old female patient. She is chronically ill appearing. She is sitting on the psychiatric bed. She does not appear to be in any acute distress. VITAL SIGNS: Blood pressure 95/68, pulse 75, respirations 16, O2 sat 100 %, temperature 98.6. Blood pressure when she first came in to Psychiatry was in the 140s to 150s, and now has been low, decreased in last 24 hours. Last blood pressure was 89/63. HEENT: Head atraumatic. Eyes: EOM's intact. Sclerae anicteric. Not pale. Throat: Oral mucosa appears to be dry. No oropharyngeal erythema. NECK: Supple. LUNGS: Clear to auscultation. No wheezes, rales or rhonchi. HEART: Sounds S1, S2. Regular rate and rhythm. No murmurs, rubs or gallops. ABDOMEN: Soft, it is flat, tenderness in the suprapubic area. EXTREMITIES: She is able to move all 4 extremities with 5/5 strength. NEUROLOGIC: She is awake, alert, oriented x3. Tongue midline. Property Disposal Officer are equal. She had no gross focal deficits. SKIN: Grossly intact. LABORATORY DATA: The labs today that were obtained include a WBC of 7.1, RBC of 3.92, hemoglobin 12.2, hematocrit 36, platelet count of 328. Her sodium is 130, potassium 3.9, chloride of 94, bicarb 34, BUN 9, creatinine 0.59, glucose 118, calcium 9, total bilirubin 0.6, AST 14, ALT 10, alk phos 45. CRP of 2.68. Albumin of 3.7. Urine on the 06/18/17 was negative. Toxicology negative. Again, no medical records are available here, we will try to obtain them. ASSESSMENT AND PLAN: Mrs. Ledesma is a 72-year-old female patient with multiple medical problems, coming into our psychiatric services for exacerbation of anxiety and depression. We were asked to evaluate for hypotension and diarrhea and abdominal discomfort. She will be admitted under observation status for: 1. Hypotension: I suspect this is related to dehydration from the diarrhea, which is unclear. My plan is to go ahead and hydrate her and try to figure out the cause of her diarrhea, if possible. 2. Abdominal discomfort with diarrhea: Again, she recently has been on antibiotics, with Cipro and Flagyl. I think it is prudent to go ahead and check C. difficile along with stool cultures and fecal lactoferrin, getting a CT of the abdomen, and trying to get records from her previous workups as she has had colonoscopies and EGDs. I will keep her on the Cipro and Flagyl. We will hydrate her and I will try to see if we can figure out an underlying cause. She recently was treated with colitis, which certainly could be the culprit, and because of the hypotension as well I will get blood cultures to make sure she does not have any bacteria, although I suspect this is less likely without having any fevers or a leukocytosis, but we will follow this closely. 3. History of irritable bowel syndrome: Continue with supportive care and try to get records from [place]. 4. Osteoporosis: Continue her meds as prescribed. She is on calcium. 5. Chronic obstructive pulmonary disease: I have ordered p.r.n. albuterol and continued her Breo. She does not appear to be in any respiratory distress and her lungs were clear. 6. History of diverticulosis: Again, I going to get a CT to make sure she does not have any diverticulitis, but we will continue Cipro and Flagyl for the time being. 7. Code status: She is a full code. 8. Fluids, electrolytes, and nutrition: She can have a clear liquid diet. 9. DVT prophylaxis: She will be placed on heparin subcu. TIME SPENT: Time spent on admission was 60 minutes, greater than half the time spent [id number] with the patient obtaining my history and physical, the other half of time was spent going over the plan of care with the patient and implementing plan of care. I did discuss the plan of care with my attending, Dr. Hamilton, who was in agreement. ISIDRO SQUIRES, FABI [id number]/[facility] #: [id number] SHOAIB
[2017-06-22] MEDS: Ondansetron INJ* 2 MG/ML VIAL IV PRN (17:10)
[2017-06-22 17:18] LABS: Hematocrit 35 % (35-47); Hemoglobin 11.7 g/dl (12.0-16.0); Mean Corpuscular HGB Conc 34 g/dl (31-36); Mean Corpuscular Hemoglobin 31 pg (27-31); Mean Corpuscular Volume 92 fL (80-97); Mean Platelet Volume 7 um3 (7.4-10.4); Red Cell Distribution Width 13 % (10.5-15); White Blood Count 5.6 10^3/ul (3.5-10.8)
[2017-06-22 18:39] LABS: EGFR African American 146.7 (>60)
[2017-06-22] MEDS: clonazePAM TAB(*) 0.5 MG PO PRN (18:58)
[2017-06-22 20:55] LABS: Urine Bilirubin Negative (Negative); Urine Glucose Negative (Negative); Urine Nitrite Negative (Negative)
[2017-06-22] MEDS: Calcium/Vitamin D TAB 250/125* TAB PO SCH (21:10)
[2017-06-22] MEDS: Metoprolol Tartrate TAB* 25 MG PO SCH (21:10)
[2017-06-22] MEDS: metroNIDAZOLE TAB* 250 MG PO SCH (21:11)
[2017-06-22] MEDS: Ciprofloxacin TAB* 500 MG PO SCH (21:11)
[2017-06-23] MEDS: FLUTICASONE INH SCH ×2 (00:15→08:32)
[2017-06-23] MEDS: VILANTEROL MDI INH SCH ×2 (00:15→08:32)
[2017-06-23] MEDS: MDI INH SCH ×2 (00:15→08:32)
[2017-06-23] MEDS: NS 0.9% 1000 ML* 1,000 ML IV SCH (02:55)
[2017-06-23 06:13] LABS: Hematocrit 35 % (35-47); Hemoglobin 11.6 g/dl (12.0-16.0); Mean Corpuscular HGB Conc 33 g/dl (31-36); Mean Corpuscular Hemoglobin 31 pg (27-31); Mean Corpuscular Volume 93 fL (80-97); Mean Platelet Volume 8 um3 (7.4-10.4); Red Blood Count 3.77 10^6/ul (4.0-5.4); Red Cell Distribution Width 13 % (10.5-15); White Blood Count 5.5 10^3/ul (3.5-10.8)
[2017-06-23 06:23] LABS: BUN/Creatinine Ratio 11.8 (8-20); Calcium 8.8 mg/dL (8.6-10.3); EGFR African American 153.3 (>60); EGFR Non-African American 119.2 (>60); Potassium 3.9 mmol/L (3.5-5.0)
[2017-06-23] MEDS: Heparin VIAL(*) 5000 UNITS/ML VIAL (FIVE THOUSAND) SUBCUT SCH ×2 (06:23→14:31)
[2017-06-23] MEDS: Omeprazole CAP* 20 MG PO SCH (06:23)
[2017-06-23] MEDS: clonazePAM TAB(*) 0.5 MG PO PRN (08:30)
[2017-06-23] MEDS: Gabapentin CAP(*) 300 MG PO SCH ×2 (08:33→14:31)
[2017-06-23] MEDS: Metoprolol Tartrate TAB* 25 MG PO SCH (08:33)
[2017-06-23] MEDS: Ciprofloxacin TAB* 500 MG PO SCH (08:33)
[2017-06-23] MEDS: Calcium/Vitamin D TAB 250/125* TAB PO SCH (08:34)
[2017-06-23] MEDS: metroNIDAZOLE TAB* 250 MG PO SCH (08:34)
[2017-06-23] MEDS: Ondansetron INJ* 2 MG/ML VIAL IV PRN (08:43)
[2017-06-23] MEDS ORDERED: Lactobacillus Acidophilu (GG)* 1 CAP CAP PO SCH (09:00)
[2017-06-23] MEDS ORDERED: Atorvastatin* 20 MG TAB PO SCH (09:00)
[2017-06-23] MEDS ORDERED: Venlafaxine EXT RELEASE CAP* 75 MG PO SCH (09:00)
--- NOTE | 2017-06-23 12:20 | CONSULT ---
Identification - Patient Identification Reason for Psychiatric Consultation: Incapacitating Symptoms -: Patient is a 72 year old, F admitted on 06/22/17. - MHU Identification Employment Status: retired Hx Psychiatric Hospitalization: No Prior Psychiatric Diagnosis: Illness anxiety d/o Arrived to Hospital Via: Car History - Objective HPI: HPI: ---- Patient is a 72yo female with no significant PPHx. Patient interviewed with and son at her bedside. Patient presented to the [facility] after recommendation from her PCP office for recent exacerbation of anxiety and depression. Patient reports the root of her anxiety is her fear that she is ill and no one can find the cause. Patient reports months of severe abdominal pain, worse in the mornings. Patient reports over the last week, the pain has been so intense that she has been unable to get out of bed. Patient reports her PCP and GI men's custom hair piece consultant have done 2 colonoscopies, an EGD and multiple abdominal films. Patient was started on Gabapentin then Klonopin for anxiety. Son and report over the last few weeks patient has isolated and is not involved in the family as she once was. Per and son , patient has not been attending to hygiene nor to grooming. She is not engaged with her grandchildren. Patient reports anxiety that her pain will worsen if she moves. She does report diminished mood, energy, and sleep. Patient endorses increased episodes of crying and social withdrawal. Patient denies anhedonia and SI/HI. Patient has a dx of IBS. She has also been started on a course of Cipro and Flagyl due to a recent dx of colitis. Patient at this point believes the abdominal pain is a side effect of Gabapentin or Klonopin as she's recent abd pain can be a med of both meds. Patient denies constipation. I will not further irradiate her belly. Patient is amenable to taper off both meds and initiation of Effexor for anxiety and depression. Patient reports no hx of abuse of alcohol. Patient denies hx of use of illicit substances. Patient reported no symptoms of psychosis nor were any elicited on interview. On 06/22/17 patient noted to be hypotensive with symptoms. Patient recently had experienced daily diarrhea and poor fluid intake and diminished appetite. Patient admitted to medical floor for mx. Today, patient is noticeably less anxious and reports motivation to continue plan to taper off meds associated with initiation of her abdominal pain and uptitrate Effexor for mx of anxiety and mood issues. Patient again denies SI/HI and AH/VH. MSE: ----- Appearance - frail thin build elderly femle, fair hygeine, in NAD Behavior - calm, cooperative Speech - RVR, prosody wnl Eye Contact - good Mood - "anxious" Affect - mildly anxious TP - linear and GD TC - focused on understanding the schedule for uptitration of Effexor and the tapering off of Klonopin and Gabapentin Perception - no signs of psychosis noted or reported Orientation - A&Ox3 Cognition - intact Insight - fair Judgement - fair SI / HI - denies both ASSESSMENT: 1. MDD, S,S w/ anxious distress 2. Illness anxiety d/o 3. Unspecified Personality d/o (cluster B traits) RECOMMENDATIONS: 1. Patient is deemed psychiatrically stable. She does not meet criteria for admission to BSU. Patient understands plan for uptitration of Effexor for mx of mood and anxiety symptoms. as well as for the tapering to off of both Klonopin and Gabapentin. 2. Recommend referral to an outpt psychiatrist for mx of anxiety and mood dx. 3. Continue Effexor at 75mg po daily, started during BSU admission. Recommend uptitration to 150mg po daily w/in 2 weeks if patient tolerates the med. 4. Continue taper of Clonazepam at the following schedule: Clonazepam 0.25mg po Continue for 10 more days. Then taper to Clonazepam 0.25mg po BID for 2 weeks. Then taper to Clonazepam 0.25mg po daily for 2 weeks. Then taper to Clonazepam 0.25mg po QOD for 2 weeks and Then STOP. 5. Continue taper of Gabapentin at the following schedule: Gabapentin 300mg po TID for 10 more days. Then taper to Gabapentin 300mg po BID for 2 weeks. Then taper to Gabapentin 300mg po daily for 2 weeks. Then taper to Gabapentin 300mg po QOD for 2 weeks and Then STOP. 6. Recommend referral to outpt psychiatrist for mx of patients anxiety and depression. Past Psych Hx: Inpt - No hx Outpt - No hx Psychotropic med hx - Klonopin, Gabapentin Suicide attempt Hx / SIB Hx: Patient denies hx of suicide attack and SIB. Substance Hx: Patient denies hx of abuse of alcohol. Patient denies hx of use of illicit substances. Medical Hx: Osteoporosis Recent vertebral fracture after a fall COPD on home oxygen(2L) continuous Current dx of colitis onCipro and Flagyl IBS Allergies: --------- Loperamide ASA Diphenhydramine Nickel Social Hx: --------- -Lives with of >30 yrs -Close with son who lives in the same city -Close with daughter who lives out of town -Multiple grandchildren -Retired -No firearms in the home Home medications: Home Medications Medication Instructions Recorded Confirmed Type Albuterol inh POWDER (NF) [Proair 1 puff INH Q6HR PRN 06/18/17 06/18/17 History Respiclick] Atorvastatin* [Lipitor*] 20 mg PO DAILY 06/18/17 06/18/17 History Calcium Carbonate-Cholecalcife 1 tab PO BID 06/18/17 06/18/17 History [Calcium 600 + D 600-200 mg-Unit] Ciprofloxacin TAB* [Cipro 500 MG 500 mg PO BID 06/18/17 06/18/17 History TAB*] Fluticasone Furoate-Vilanterol 1 puff INH BID 06/18/17 06/18/17 History [Breo Ellipta 200-25 Mcg/INH] Gabapentin CAP(*) [Neurontin 100 200 - 300 mg PO BID PRN 06/18/17 06/18/17 History mg CAP(*)] Gabapentin CAP(*) [Neurontin 300 300 mg PO TID 06/18/17 06/18/17 History CAP(*)] Lactobacillus [Probiotic] 1 cap PO DAILY 06/18/17 06/18/17 History Metoprolol Tartrate TAB* 25 mg PO BID 06/18/17 06/18/17 History [Lopressor TAB*] Ondansetron TAB* [Zofran 4 MG Tab*] 4 mg PO Q8HR PRN 06/18/17 06/18/17 History Pantoprazole TAB (NF) [Protonix 40 mg PO BID 06/18/17 06/18/17 History TAB (NF)] Potassium Chlor TAB* [Klor Con ER 20 meq PO DAILY WITH MEAL 06/18/17 06/18/17 History TAB*] clonazePAM TAB(*) [KlonoPIN TAB(*)] 0.25 mg PO TID PRN 06/18/17 06/18/17 History metroNIDAZOLE TAB* [Flagyl 250 mg 500 mg PO BID 06/18/17 06/18/17 History TAB*] VITALS: --------- Laboratory Tests 06/22/17 06/22/17 06/22/17 17:07 17:08 17:08 WBC 5.6 RBC 3.80 L Hgb 11.7 L Hct 35 MCV 92 MCH 31 MCHC 34 RDW 13 Plt Count 328 MPV 7 L Neut % (Auto) 72.1 Lymph % (Auto) 18.5 L [place] % (Auto) 7.4 Eos % (Auto) 1.1 Baso % (Auto) 0.9 Absolute Neuts (auto) 4.0 Absolute Lymphs (auto) 1.0 Absolute Monos (auto) 0.4 Absolute Eos (auto) 0.1 Absolute Basos (auto) 0 Absolute Nucleated RBC 0 Nucleated RBC % 0 INR (Anticoag Therapy) 1.00 APTT 30.2 Sodium Potassium Chloride Carbon Dioxide Anion Gap BUN 7 Creatinine 0.53 Est GFR ( Amer) 146.7 Est GFR (Non-Af Amer) 114.0 BUN/Creatinine Ratio Glucose Calcium Urine Color Urine Appearance Urine pH Ur Specific Lawrence Urine Protein Urine Ketones Urine Blood Urine Nitrate Urine Bilirubin Urine Urobilinogen Ur Leukocyte Esterase Urine Glucose 06/22/17 06/23/17 06/23/17 19:10 05:34 05:34 WBC 5.5 RBC 3.77 L Hgb 11.6 L Hct 35 MCV 93 MCH 31 MCHC 33 RDW 13 Plt Count 317 MPV 8 Neut % (Auto) 67.2 Lymph % (Auto) 21.8 L [place] % (Auto) 8.5 Eos % (Auto) 1.8 Baso % (Auto) 0.7 Absolute Neuts (auto) 3.7 Absolute Lymphs (auto) 1.2 Absolute Monos (auto) 0.5 Absolute Eos (auto) 0.1 Absolute Basos (auto) 0 Absolute Nucleated RBC 0 Nucleated RBC % 0 INR (Anticoag Therapy) 1.00 APTT Sodium Potassium Chloride Carbon Dioxide Anion Gap BUN Creatinine Est GFR ( Amer) Est GFR (Non-Af Amer) BUN/Creatinine Ratio Glucose Calcium Urine Color Straw Urine Appearance Clear Urine pH 6.0 Ur Specific Lawrence 1.036 H Urine Protein Negative Urine Ketones Negative Urine Blood Negative Urine Nitrate Negative Urine Bilirubin Negative Urine Urobilinogen Negative Ur Leukocyte Esterase Negative Urine Glucose Negative 06/23/17 05:34 WBC RBC Hgb Hct MCV MCH MCHC RDW Plt Count MPV Neut % (Auto) Lymph % (Auto) [place] % (Auto) Eos % (Auto) Baso % (Auto) Absolute Neuts (auto) Absolute Lymphs (auto) Absolute Monos (auto) Absolute Eos (auto) Absolute Basos (auto) Absolute Nucleated RBC Nucleated RBC % INR (Anticoag Therapy) APTT Sodium 136 Potassium 3.9 Chloride 102 Carbon Dioxide 32 Anion Gap 2 BUN 6 Creatinine 0.51 Est GFR ( Amer) 153.3 Est GFR (Non-Af Amer) 119.2 BUN/Creatinine Ratio 11.8 Glucose 94 Calcium 8.8 Urine Color Urine Appearance Urine pH Ur Specific Lawrence Urine Protein Urine Ketones Urine Blood Urine Nitrate Urine Bilirubin Urine Urobilinogen Ur Leukocyte Esterase Urine Glucose LABS: ----- Laboratory Tests 06/22/17 06/22/17 06/22/17 17:07 17:08 17:08 WBC 5.6 RBC 3.80 L Hgb 11.7 L Hct 35 MCV 92 MCH 31 MCHC 34 RDW 13 Plt Count 328 MPV 7 L Neut % (Auto) 72.1 Lymph % (Auto) 18.5 L [place] % (Auto) 7.4 Eos % (Auto) 1.1 Baso % (Auto) 0.9 Absolute Neuts (auto) 4.0 Absolute Lymphs (auto) 1.0 Absolute Monos (auto) 0.4 Absolute Eos (auto) 0.1 Absolute Basos (auto) 0 Absolute Nucleated RBC 0 Nucleated RBC % 0 INR (Anticoag Therapy) 1.00 APTT 30.2 Sodium Potassium Chloride Carbon Dioxide Anion Gap BUN 7 Creatinine 0.53 Est GFR ( Amer) 146.7 Est GFR (Non-Af Amer) 114.0 BUN/Creatinine Ratio Glucose Calcium Urine Color Urine Appearance Urine pH Ur Specific Lawrence Urine Protein Urine Ketones Urine Blood Urine Nitrate Urine Bilirubin Urine Urobilinogen Ur Leukocyte Esterase Urine Glucose 06/22/17 06/23/17 06/23/17 19:10 05:34 05:34 WBC 5.5 RBC 3.77 L Hgb 11.6 L Hct 35 MCV 93 MCH 31 MCHC 33 RDW 13 Plt Count 317 MPV 8 Neut % (Auto) 67.2 Lymph % (Auto) 21.8 L [place] % (Auto) 8.5 Eos % (Auto) 1.8 Baso % (Auto) 0.7 Absolute Neuts (auto) 3.7 Absolute Lymphs (auto) 1.2 Absolute Monos (auto) 0.5 Absolute Eos (auto) 0.1 Absolute Basos (auto) 0 Absolute Nucleated RBC 0 Nucleated RBC % 0 INR (Anticoag Therapy) 1.00 APTT Sodium Potassium Chloride Carbon Dioxide Anion Gap BUN Creatinine Est GFR ( Amer) Est GFR (Non-Af Amer) BUN/Creatinine Ratio Glucose Calcium Urine Color Straw Urine Appearance Clear Urine pH 6.0 Ur Specific Lawrence 1.036 H Urine Protein Negative Urine Ketones Negative Urine Blood Negative Urine Nitrate Negative Urine Bilirubin Negative Urine Urobilinogen Negative Ur Leukocyte Esterase Negative Urine Glucose Negative 06/23/17 05:34 WBC RBC Hgb Hct MCV MCH MCHC RDW Plt Count MPV Neut % (Auto) Lymph % (Auto) [place] % (Auto) Eos % (Auto) Baso % (Auto) Absolute Neuts (auto) Absolute Lymphs (auto) Absolute Monos (auto) Absolute Eos (auto) Absolute Basos (auto) Absolute Nucleated RBC Nucleated RBC % INR (Anticoag Therapy) APTT Sodium 136 Potassium 3.9 Chloride 102 Carbon Dioxide 32 Anion Gap 2 BUN 6 Creatinine 0.51 Est GFR ( Amer) 153.3 Est GFR (Non-Af Amer) 119.2 BUN/Creatinine Ratio 11.8 Glucose 94 Calcium 8.8 Urine Color Urine Appearance Urine pH Ur Specific Lawrence Urine Protein Urine Ketones Urine Blood Urine Nitrate Urine Bilirubin Urine Urobilinogen Ur Leukocyte Esterase Urine Glucose Laboratory Tests 06/18/17 06/18/17 06/18/17 14:20 14:20 15:30 WBC 6.2 RBC 3.91 L Hgb 12.2 Hct 37 MCV 94 MCH 31 MCHC 33 RDW 13 Plt Count 347 MPV 7 L Neut % (Auto) 69.2 Lymph % (Auto) 20.0 L [place] % (Auto) 7.8 Eos % (Auto) 2.2 Baso % (Auto) 0.8 Absolute Neuts (auto) 4.3 Absolute Lymphs (auto) 1.2 Absolute Monos (auto) 0.5 Absolute Eos (auto) 0.1 Absolute Basos (auto) 0.1 Absolute Nucleated RBC 0 Nucleated RBC % 0 Sodium 134 Potassium 4.2 Chloride 98 L Carbon Dioxide 31 Anion Gap 5 BUN 6 Creatinine 0.57 Est GFR ( Amer) 134.9 Est GFR (Non-Af Amer) 104.9 BUN/Creatinine Ratio 10.5 Glucose 102 H Calcium 9.4 Total Bilirubin 0.60 AST 16 ALT 11 Alkaline Phosphatase 53 Total Protein 6.9 Albumin 4.2 Globulin 2.7 Albumin/Globulin Ratio 1.6 TSH < 0.03 L Urine Color Urine Appearance Urine pH Ur Specific Lawrence Urine Protein Urine Ketones Urine Blood Urine Nitrate Urine Bilirubin Urine Urobilinogen Ur Leukocyte Esterase Urine Glucose Salicylates < 2.50 Urine Opiates Screen None detected Acetaminophen < 15 Ur Barbiturates Screen None detected Ur Phencyclidine Scrn None detected Ur Amphetamines Screen None detected U Benzodiazepines Scrn None detected Urine Cocaine Screen None detected U Cannabinoids Screen None detected Serum Alcohol < 10 06/18/17 15:30 WBC RBC Hgb Hct MCV MCH MCHC RDW Plt Count MPV Neut % (Auto) Lymph % (Auto) [place] % (Auto) Eos % (Auto) Baso % (Auto) Absolute Neuts (auto) Absolute Lymphs (auto) Absolute Monos (auto) Absolute Eos (auto) Absolute Basos (auto) Absolute Nucleated RBC Nucleated RBC % Sodium Potassium Chloride Carbon Dioxide Anion Gap BUN Creatinine Est GFR ( Amer) Est GFR (Non-Af Amer) BUN/Creatinine Ratio Glucose Calcium Total Bilirubin AST ALT Alkaline Phosphatase Total Protein Albumin Globulin Albumin/Globulin Ratio TSH Urine Color Straw Urine Appearance Clear Urine pH 7.0 Ur Specific Lawrence 1.003 L Urine Protein Negative Urine Ketones Negative Urine Blood Negative Urine Nitrate Negative Urine Bilirubin Negative Urine Urobilinogen Negative Ur Leukocyte Esterase Negative Urine Glucose Negative Salicylates Urine Opiates Screen Acetaminophen Ur Barbiturates Screen Ur Phencyclidine Scrn Ur Amphetamines Screen U Benzodiazepines Scrn Urine Cocaine Screen U Cannabinoids Screen Serum Alcohol Lab Results: Laboratory Tests 06/22/17 06/22/17 06/22/17 17:07 17:08 17:08 WBC 5.6 RBC 3.80 L Hgb 11.7 L Hct 35 MCV 92 MCH 31 MCHC 34 RDW 13 Plt Count 328 MPV 7 L Neut % (Auto) 72.1 Lymph % (Auto) 18.5 L [place] % (Auto) 7.4 Eos % (Auto) 1.1 Baso % (Auto) 0.9 Absolute Neuts (auto) 4.0 Absolute Lymphs (auto) 1.0 Absolute Monos (auto) 0.4 Absolute Eos (auto) 0.1 Absolute Basos (auto) 0 Absolute Nucleated RBC 0 Nucleated RBC % 0 INR (Anticoag Therapy) 1.00 APTT 30.2 Sodium Potassium Chloride Carbon Dioxide Anion Gap BUN 7 Creatinine 0.53 Est GFR ( Amer) 146.7 Est GFR (Non-Af Amer) 114.0 BUN/Creatinine Ratio Glucose Calcium Urine Color Urine Appearance Urine pH Ur Specific Lawrence Urine Protein Urine Ketones Urine Blood Urine Nitrate Urine Bilirubin Urine Urobilinogen Ur Leukocyte Esterase Urine Glucose 06/22/17 06/23/17 06/23/17 19:10 05:34 05:34 WBC 5.5 RBC 3.77 L Hgb 11.6 L Hct 35 MCV 93 MCH 31 MCHC 33 RDW 13 Plt Count 317 MPV 8 Neut % (Auto) 67.2 Lymph % (Auto) 21.8 L [place] % (Auto) 8.5 Eos % (Auto) 1.8 Baso % (Auto) 0.7 Absolute Neuts (auto) 3.7 Absolute Lymphs (auto) 1.2 Absolute Monos (auto) 0.5 Absolute Eos (auto) 0.1 Absolute Basos (auto) 0 Absolute Nucleated RBC 0 Nucleated RBC % 0 INR (Anticoag Therapy) 1.00 APTT Sodium Potassium Chloride Carbon Dioxide Anion Gap BUN Creatinine Est GFR ( Amer) Est GFR (Non-Af Amer) BUN/Creatinine Ratio Glucose Calcium Urine Color Straw Urine Appearance Clear Urine pH 6.0 Ur Specific Lawrence 1.036 H Urine Protein Negative Urine Ketones Negative Urine Blood Negative Urine Nitrate Negative Urine Bilirubin Negative Urine Urobilinogen Negative Ur Leukocyte Esterase Negative Urine Glucose Negative 06/23/17 05:34 WBC RBC Hgb Hct MCV MCH MCHC RDW Plt Count MPV Neut % (Auto) Lymph % (Auto) [place] % (Auto) Eos % (Auto) Baso % (Auto) Absolute Neuts (auto) Absolute Lymphs (auto) Absolute Monos (auto) Absolute Eos (auto) Absolute Basos (auto) Absolute Nucleated RBC Nucleated RBC % INR (Anticoag Therapy) APTT Sodium 136 Potassium 3.9 Chloride 102 Carbon Dioxide 32 Anion Gap 2 BUN 6 Creatinine 0.51 Est GFR ( Amer) 153.3 Est GFR (Non-Af Amer) 119.2 BUN/Creatinine Ratio 11.8 Glucose 94 Calcium 8.8 Urine Color Urine Appearance Urine pH Ur Specific Lawrence Urine Protein Urine Ketones Urine Blood Urine Nitrate Urine Bilirubin Urine Urobilinogen Ur Leukocyte Esterase Urine Glucose Exam Appearance: Thin Framed Hygiene: Normal Grooming: Fairly Well Kept Psychomotor Activities: Normal Exhibits Abnormal Movement: No Attitude and Relatedness: Cooperative Eye Contact: Fair - Speech Quality: Unpressured Latencies: Normal Quantity: Appropriate Patient's Decription of Mood: "Anxious" Observed Affect: Fair Affect Consistent with: Euthymia Patient's Thought Process: Coherent Thought Content: No Passive Wish, No Suicidal Planning, No Homicidal Ideation, No Paranoid Ideation Experiencing Hallucinations: No, Sensorium is Clear Type of Hallucinations: Visual: No, Auditory: No, Command: No Level of Consciousness: Alert Orientation: Yes Intact, Yes Orientated to Time, Yes Orientated to Place, Yes Orientated to Person Impulse Control: Intact Insight and Judgement: Fair Impression - Impression Inpatient DSM-IV Dx: ASSESSMENT: . 1. MDD, S,S w/ anxious distress. 2. Illness anxiety d/o. 3. Unspecified Personality d/o (cluster B traits) Merits Inpatient Hospitalization: No Problem List - MHU Problems Type of Problem: Attitude and Relatedness Status of Problem: Active Problem: Anxiety. Psychosomatic symptoms Plan - Treatment Plan Treatment Plan: RECOMMENDATIONS: 1. Patient is deemed psychiatrically stable. She does not meet criteria for admission to BSU. Patient understands plan for uptitration of Effexor for mx of mood and anxiety symptoms. as well as for the tapering to off of both Klonopin and Gabapentin. 2. Recommend referral to an outpt psychiatrist for mx of anxiety and mood dx. 3. Continue Effexor at 75mg po daily, started during BSU admission. Recommend uptitration to 150mg po daily w/in 2 weeks if patient tolerates the med. 4. Continue taper of Clonazepam at the following schedule: Clonazepam 0.25mg po Continue for 10 more days. Then taper to Clonazepam 0.25mg po BID for 2 weeks. Then taper to Clonazepam 0.25mg po daily for 2 weeks. Then taper to Clonazepam 0.25mg po QOD for 2 weeks and Then STOP. 5. Continue taper of Gabapentin at the following schedule: Gabapentin 300mg po TID for 10 more days. Then taper to Gabapentin 300mg po BID for 2 weeks. Then taper to Gabapentin 300mg po daily for 2 weeks. Then taper to Gabapentin 300mg po QOD for 2 weeks and Then STOP. 6. Recommend referral to outpt psychiatrist for mx of patients anxiety and depression. Continued Medication Management: Different Medication Medications: Current Medications Acetaminophen (Tylenol Tab*) 650 mg PO Q4H PRN PRN Reason: FEVER/PAIN Last Admin: 06/22/17 17:10 Dose: 650 mg Albuterol (Ventolin 2.5 Mg/3 Ml Neb.Alisa*) 2.5 mg INH Q2H PRN PRN Reason: SOB/WHEEZING Last Admin: 06/22/17 18:36 Dose: 2.5 mg Atorvastatin Calcium (Lipitor*) 20 mg PO DAILY LEVI Last Admin: 06/23/17 08:33 Dose: 20 mg Calcium/Vitamin D (Oscal D Tab 250/125*) 1 tab PO BID [facility] Last Admin: 06/23/17 08:34 Dose: 1 tab Ciprofloxacin (Cipro Tab*) 500 mg PO BID [facility] Last Admin: 06/23/17 08:33 Dose: 500 mg Clonazepam (Klonopin Tab(*)) 0.25 mg PO TID PRN PRN Reason: ANXIETY Last Admin: 06/23/17 08:30 Dose: 0.25 mg Fluticasone/Vilanterol (Breo Ellipta Mdi 100/25(Nf)) 1 puff INH BID [facility] Last Admin: 06/23/17 08:32 Dose: 1 puff Gabapentin (Neurontin Cap(*)) 300 mg PO TID [facility] Last Admin: 06/23/17 08:33 Dose: 300 mg Heparin Sodium (Porcine) (Heparin Vial(*)) 5,000 units SUBCUT Q8HR [facility] Last Admin: 06/23/17 06:23 Dose: 5,000 units Sodium Chloride (Ns 0.9% 1000 Ml*) 1,000 mls @ 100 mls/hr IV PER RATE [facility] Last Admin: 06/23/17 02:55 Dose: 100 mls/hr Lactobacillus Rhamnosus (Culturelle*) 1 cap PO DAILY [facility] Last Admin: 06/23/17 08:34 Dose: 1 cap Metoprolol Tartrate (Lopressor Tab*) 25 mg PO BID [facility] Last Admin: 06/23/17 08:33 Dose: 25 mg Metronidazole (Flagyl Tab*) 500 mg PO BID [facility] Last Admin: 06/23/17 08:34 Dose: 500 mg Omeprazole (Prilosec Cap*) 20 mg PO BID AC [facility] Last Admin: 06/23/17 06:23 Dose: 20 mg Ondansetron HCl (Zofran Inj*) 4 mg IV Q6H PRN PRN Reason: NAUSEA Last Admin: 06/23/17 08:43 Dose: 4 mg Venlafaxine HCl (Effexor Xr Cap*) 75 mg PO DAILY [facility] Last Admin: 06/23/17 08:32 Dose: 75 mg - Discharge Plan Discharge Plan: Outpatient Follow Up
[2017-06-23 14:22] VITALS: BP 157/77
--- NOTE | 2017-06-24 02:04 | DS ---
CC: Dr. John Paul Ribeiro * DISCHARGE SUMMARY: DATE OF ADMISSION: 06/22/17 DATE OF DISCHARGE: 06/23/17 PRIMARY CARE PROVIDER: Dr. John Paul Ribeiro. PRINCIPAL DIAGNOSES: 1. Chronic diarrhea. 2. Hypotension - transient. SECONDARY DIAGNOSES: 1. Anxiety. 2. Irritable bowel syndrome. 3. Chronic obstructive pulmonary disease. DISCHARGE MEDICATIONS: 1. Tylenol 650 mg p.o. q.4 hours pain. 2. Klonopin 0.25 mg p.o. t.i.d. x10 days, then 0.25 mg p.o. b.i.d. x2 weeks, then 0.25 mg p.o. daily x2 weeks, then 0.25 mg p.o. every other day for 2 weeks and stop. 3. Effexor 75 mg p.o. daily, increasing to 150 mg p.o. daily in 2 weeks. 4. Gabapentin 300 mg p.o. t.i.d. x10 days, then 300 mg p.o. b.i.d. x2 weeks, and 300 mg p.o. daily x2 weeks, and 300 mg p.o. every other day for 2 weeks and stop. 5. Potassium chloride 20 mEq p.o. daily. 6. Protonix 40 mg p.o. b.i.d. 7. Metoprolol tartrate 25 mg p.o. b.i.d. 8. Lidocaine patch applied transdermal daily. 9. Lactobacillus 1 cap p.o. daily. 10. Calcium plus D 1 tab p.o. b.i.d. 11. Lipitor 20 mg p.o. daily. 12. Albuterol 2 puffs inhaled q.4 hours p.r.n. shortness of breath. HOSPITAL COURSE: Ms. Ledesma is a 72-year-old female who has a longstanding history of diarrhea and has been worked up by GI fairly thoroughly in the recent past, who presents to the hospital for admission to BSU to taper off her controlled substances. While on BSU, the patient was noted to go hypotensive and have frequent diarrhea. Because of this, the hospitalist service was contacted and the patient was discharged from the BSU to the medical floor. The patient stated that she had numerous bowel movements while in the floor; however, no sample was ever obtained. She had been started on Cipro and Flagyl ; however, there are no clear signs that this is infectious, therefore this was discontinued. I suspect this just represents patient's chronic diarrhea. She reports that she has an allergy to IMODIUM and LOMOTIL and therefore refuses to try these. 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 In terms of the hypotension, this appears to be transient. As the patient arrived to the floor , her blood pressure was in fair range. Her blood pressures have ranged from the 120 systolic to 150 systolic. In terms of the anxiety and medications for which she was admitted to BSU, it was felt that she could be discharged from the medical floor at home. Dr. Barajas has made recommendations on tapering her medications. The patient will follow up with her psychiatrist at home. A written out taper has been provided from Dr. Barajas to the patient, which she will follow for her medications. On the day of discharge, the patient is awake, alert, and oriented, sitting up in bed, in no acute distress. Her vital signs are stable. Cardiac exam revealed a normal S1, S2 with a regular rate and rhythm. Her lungs were clear, but slightly diminished. Her abdomen is soft, nontender, nondistended and bowel sounds were present. Again, at this point, the patient is stable for discharge home. FOLLOWUP CONCERNS: The patient is being discharged home today 06/23/17. She is to follow up with her primary care provider in the next 4 to 7 days. ACTIVITY LEVEL: As tolerated. DIET: Regular. CONDITION ON DISCHARGE: Stable. TIME SPENT: Thirty-five minutes was spent discharging this patient. [id number]/[facility] #: [id number]
== END 2017-06-23 12:45 | disposition home or self-care (01) ==
LOC: MED 14:08
PROVIDERS: ADMIT Internal Medicine; ATTEND Hospitalist
DX: K52.9 Noninfective gastroenteritis and colitis, unspecified (principal); I95.9 Hypotension, unspecified; R11.2 Nausea with vomiting, unspecified; R10.31 Right lower quadrant pain; J44.9 Chronic obstructive pulmonary disease, unspecified; K57.90 Diverticulosis of intestine, part unspecified, without perforation or abscess without bleeding; Z79.899 Other long term (current) drug therapy; Z87.891 Personal history of nicotine dependence; F41.8 Other specified anxiety disorders
CPT/HCPCS: 36415; 74177; 80048; 81003; 82565; 84520; 85025; 85610; 85730; 87040; 87086; 94640; 96360; 96361; 96372; A9270-GY; G0378; J1644; J2405; Q9967